=== PATIENT | male | born 1935 | race Caucasian/White ===

== ENCOUNTER 2016-08-31 21:49 | Emergency (ER) | payer MEDICARE, BC ==
[~2016-08-31] VITALS: Ht 188 cm; Wt 91.8 kg
[2016-08-31 21:49] VITALS: TEMP 97.6; Ht 188 cm; Wt 91.8 kg
--- OUTSIDE RECORDS SUMMARY | 2016-08-31 21:53 | XMS REPORT | Continuity of Care Document ---
Author Author [facility] Organization [facility] Address Unknown Phone Unavailable Support Name Relationship Address Phone ROBE LOCKWOOD MD Caregiver [address] [place] [address] [place] [phone] BEAU MONTES MD Caregiver [address] [facility] [address] [place] [address] ISABEL ERICKSON Next Of Kin [address] [place], [place] [id number] Insurance Providers Payer Name Policy Number Subscriber Name Relationship Medicare [id number] Miguelina Erickson 18 Self Blue [employer] Select Plan 65 [id number] Miguelina Erickson 18 Self Problems Medical Problems Problem Onset Date Status Ectopic atrial rhythm Unknown Active Syncope Unknown Active Hyponatremia with decreased serum osmolality Unknown Active Ectopic atrial rhythm Unknown Active Medications Medication Dose Route Sig Days/Qty Instructions Order Date Discontinued Date Status Aspirin 325 Mg PO 2 TIMES A WEEK 03/16/10 03/25/14 Discontinued Calcium Carbonate/Vitamin D3 1 Tab PO DAILY 03/16/10 Active Loratadine 10 Mg PO DAILY 03/16/10 Active Carvedilol 12.5 Mg PO TWICE A DAY 03/16/10 Active Fluticasone Propionate 16 Gm NS NEEDED 03/16/10 Active Hydrocodone Bit/Acetaminophen 1 Udtab PO NEEDED 03/16/10 Active Fish Oil/[place]-3 Fatty Acids 2 Cap PO TWICE A DAY 03/16/10 Active Omeprazole 40 Mg PO DAILY 03/16/10 Active Multivitamins W-Minerals/Lut 1 Tab PO DAILY 03/16/10 Active Calcium Carbonate/Vitamin D3 1 Tab PO DAILY 03/16/10 Active Aspirin 1 Tab PO DAILY 03/25/14 Active Losartan Potassium 25 Mg PO TWICE A DAY 03/25/14 Active Multivit-Min/FA/Lutein/Zeaxant 1 Tab PO DAILY 03/25/14 Active Venlafaxine HCl 75 Mg PO DAILY 03/25/14 Active Pravastatin Sodium 20 Mg PO BEDTIME Take 1 tablet, by mouth, daily at bedtime. 03/25/14 Active Social History Social History Problem Response Recorded Date/Time Smoking Status Former smoker 03/25/2014 10:18am When did patient START smoking? 18 YEARS OLD 03/25/2014 10:18am When did patient STOP smoking? 28 YEARS OLD 03/25/2014 10:18am Hx Substance Use No 03/25/2014 10:18am Hx Alcohol Use No 03/25/2014 10:18am Hospital Discharge Instructions No hospital discharge instructions. Plan of Care No plan of care. Functional Status Query Response Date Recorded Physical Hygiene Self March 25, 2014 10:18am Disabilities None March 25, 2014 10:18am Devices Used None March 25, 2014 10:18am Dressing Self March 25, 2014 10:18am Ambulation Self March 25, 2014 10:18am Diet Self March 25, 2014 10:18am Mental Status Alert Oriented March 25, 2014 10:18am Disabilities None March 25, 2014 10:18am Devices Used None March 25, 2014 10:18am Physical Hygiene Self March 25, 2014 10:18am Dressing Self March 25, 2014 10:18am Ambulation Self March 25, 2014 10:18am Diet Self March 25, 2014 10:18am Allergies, Adverse Reactions, Alerts Allergen Type Severity Reaction Status Last Updated No Known Drug Allergies Allergy Unknown Active 03/13/10 Immunizations Name Given Type Hx Influenza Vaccination Y FALL 2013 Historical Hx Pneumococcal Vaccination Y 2004 Historical Hx Influenza Vaccination Y FALL 2013 Historical Vital Signs Acute Vital Signs Vital Response Date/Time Temperature (Fahrenheit) 96.5 deg F (96.8 - 99.1) Temperature (Calculated Celsius) 35.01006 degrees C (36.0 - 37.3) Pulse Rate (adult) 66 bpm (60 - 100) Respiratory Rate 15 breaths/min (10 - 20) O2 Sat by Pulse Oximetry 96 % (90 - 100) Oxygen Flow Rate 4 L/min Blood Pressure 146/92 mm Hg Height 6 ft 1 in Weight 221 lb Body Mass Index 29.0 kg/m^2 Results Test Source Date Result Interp. Ref. Range Comments Alanine Aminotransferase (ALT/SGPT) March 25, 2014 9:41am 39 U/L N 21 -72 Albumin March 25, 2014 9:41am 3.8 G/DL N 3.5-5.0 Albumin/Globulin Ratio March 25, 2014 9:41am 1.5 RATIO N 1.1-2.2 Alkaline Phosphatase March 25, 2014 9:41am 66 U/L N 38-126 Anion Gap March 25, 2014 9:41am 7 MEQ/L N 5-15 Aspartate Amino Transf (AST/SGOT) March 25, 2014 9:41am 26 U/L N 17- 59 BUN/Creatinine Ratio March 25, 2014 9:41am 14 RATIO N 6-26 Basophils # (Auto) March 25, 2014 9:41am 0.1 T/MM3 N 0-0.2 Basophils (%) (Auto) March 25, 2014 9:41am 0.5 % N 0-2 Blood Urea Nitrogen March 25, 2014 9:41am 14.0 MG/DL N 9-20 Calcium Level March 25, 2014 9:41am 9.3 MG/DL N 8.4-10.2 Calculated Osmolality March 25, 2014 9:41am 251 MOSM/KG L 261-280 Carbon Dioxide Level March 25, 2014 9:41am 28 MEQ/L N 22-30 Chloride Level March 25, 2014 9:41am 94 MEQ/L L 98-107 Creatinine March 25, 2014 9:41am 1.0 MG/DL N 0.8-1.5 Eosinophils # (Auto) March 25, 2014 9:41am 0.3 T/MM3 N 0-0.5 Eosinophils (%) (Auto) March 25, 2014 9:41am 2.6 % N 0-4 Globulin March 25, 2014 9:41am 2.6 G/DL N 2.4-3.6 Glucose Level March 25, 2014 9:41am 123 MG/DL H 75-110 Hematocrit March 25, 2014 9:41am 44.6 % N 41-53 Hemoglobin March 25, 2014 9:41am 15.8 GM/DL N 13.5-17.5 Lymphocytes # (Auto) March 25, 2014 9:41am 2.6 T/MM3 N 1-4.8 Lymphocytes (%) (Auto) March 25, 2014 9:41am 21.6 % L 23-45 Mean Corpuscular Hemoglobin March 25, 2014 9:41am 32.9 UUG N 26-34 Mean Corpuscular Hemoglobin Concent March 25, 2014 9:41am 35.4 GM/DL N 31-37 Mean Corpuscular Volume March 25, 2014 9:41am 92.9 UM3 N 80-100 Mean Platelet Volume March 25, 2014 9:41am 11.1 UM3 N 9.4-12.4 Monocytes # (Auto) March 25, 2014 9:41am 1.4 T/MM3 H 0-0.8 Monocytes (%) (Auto) March 25, 2014 9:41am 11.2 % H 0-9.0 Neutrophils # (Auto) March 25, 2014 9:41am 7.6 T/MM3 N 1.8-7.7 Neutrophils (%) (Auto) March 25, 2014 9:41am 62.8 % N 33-66 Platelet Count March 25, 2014 9:41am 215 T/MM3 N 130-400 Potassium Level March 25, 2014 9:41am 4.6 MEQ/L N 3.6-5 RDW Standard Deviation March 25, 2014 9:41am 40.9 FL N 36.9-50.2 Red Blood Count March 25, 2014 9:41am 4.80 M/MM3 N 4.50-5.90 Sodium Level March 25, 2014 9:41am 129 MEQ/L L 134-144 Total Bilirubin March 25, 2014 9:41am 1.00 MG/DL N 0.20-1.30 Total Protein March 25, 2014 9:41am 6.4 G/DL N 6.3-8.2 Troponin I March 25, 2014 9:41am < 0.012 ng/ml 0-0.12 Urine Bilirubin March 25, 2014 12:54pm Negative - Has specimen been collected/obtained? Y Urine Blood March 25, 2014 12:54pm Negative - Has specimen been collected/obtained? Y Urine Collection Type March 25, 2014 12:54pm Cleancatch-midstream - Has specimen been collected/obtained? Y Urine Color March 25, 2014 12:54pm Yellow - Has specimen been collected/obtained? Y Urine Glucose (UA) March 25, 2014 12:54pm Negative - Has specimen been collected/obtained? Y Urine Ketones March 25, 2014 12:54pm Negative - Has specimen been collected/obtained? Y Urine Leukocyte Esterase March 25, 2014 12:54pm Negative - Has specimen been collected/obtained? Y Urine Nitrite March 25, 2014 12:54pm Negative - Has specimen been collected/obtained? Y Urine Protein March 25, 2014 12:54pm Negative - Has specimen been collected/obtained? Y Urine Specific [place] March 25, 2014 12:54pm 1.020 - Has specimen been collected/obtained? Y Urine Turbidity March 25, 2014 12:54pm Clear - Has specimen been collected/obtained? Y Urine Urobilinogen March 25, 2014 12:54pm 0.2 EU/DL - Has specimen been collected/obtained? Y Urine pH March 25, 2014 12:54pm 6.0 - Has specimen been collected/ obtained? Y White Blood Count March 25, 2014 9:41am 12.1 T/MM3 H 4.5-11.0 Chemistry Specimen Hemolysis March 25, 2014 9:41am < 15 0-25 0-25 : No Hemolysis.26-70: Slight Hemolysis - can falsely elevate K and Urine Protein. 71-285: Moderate Hemolysis - can falsely elevate K, Troponin I, CA 19-9, PTH, CSF GLucose, and Urine Protein, and can falsely decrease Phenytoin. 286-999: Gross Hemolysis - can falsely elevate K, Troponin I, CA 19-9, PTH, CSF Glucose, and Urine Protine, and can falsely decrease Phenytoin. Recommend specimen recollection. Urinalysis Comment March 25, 2014 12:54pm Microscopic not ind. - Has specimen been collected/obtained? Y Glucometer March 25, 2014 10:34am 121 mg/dL H 75-110 Turbidity March 25, 2014 9:41am < 20 0-20 Glomerular Filtration Rate Calc March 25, 2014 9:41am 72 - Immature Granulocyte # (Auto) March 25, 2014 9:41am 0.16 T/MM3 H 0.00 -0.03 Immature Granulocyte % (Auto) March 25, 2014 9:41am 1.3 % H 0.0-0.5 Icterus Index March 25, 2014 9:41am < 2 0-7 Name: MIGUELINA ERICKSON Unit #: [id number] : 1935 Sex: M Loc / [facility]: ED DOS: 03/25/14 Signed Report #: [id number] DIAGNOSTIC IMAGING REPORT TYPE OF EXAM: CT HEAD W/O CONTRAST Dictated By: FILIPE BHATIA MD INDICATION: ITS.REASON: syncope ^syncope COMPARISON: none. CT HEAD W/O CONTRAST: Ventricle size appears to be normal. There is no evidence of hemorrhage, acute infarct, or mass. Minor physiologic calcifications in the basal ganglia. Evidence of moderate chronic small vessel ischemic changes. There is no midline shift. IMPRESSION: Normal for age. . Procedures No known history of procedures. Encounters Encounter Location Date/Time Departed Emergency Room [facility] 03/25/14 9:56am Recent Diagnosis
--- OUTSIDE RECORDS SUMMARY | 2016-08-31 21:53 | XMS REPORT | Continuity of Care Document ---
Author Author [facility] Organization [facility] Address Unknown Phone Unavailable Support Name Relationship Address Phone BEAU MONTES MD Caregiver [address] [facility] [address] [place] [address] Unavailable DIANA BARNES MD Caregiver [address] [place] [address] [place] [phone] Unavailable ISABEL ERICKSON Next Of Kin [address] [place] [address] Insurance Providers Guarantor Miguelina Erickson Address [address] [place] [address] Email DENIED 16 Payer [employer] Select Plan 65 Policy Number [id number] Subscriber's Name Miguelina Erickson Relationship 18 Self Group Number [id number] Payer Medicare Policy Number [id number] Subscriber's Name Miguelina Erickson Relationship 18 Self Advance Directives Directive Response Recorded Date/Time Advanced Directives Type None 06/18/16 11:45pm Chief Complaint and Reason for Visit Chief Complaint Syncope Reason for Visit Syncope Problems Active Problems Medical Problem Onset Date Status 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 Hyponatremia with decreased serum osmolality Unknown Acute Syncope Unknown Acute Medications Current Home Medications Medication Dose Units Route Directions Days Qty Instructions Start Date Aspirin 81 Mg Tab.chew 1 Tab Oral Daily 03/25/14 Calcium Carbonate/Vitamin D3 (Vitamin D-3 400 Units Tablet) 1 Tab Tablet 1 Tab Oral Daily 03/16/10 Carvedilol (Coreg) 12.5 Mg Tablet 12.5 Mg Oral Twice A Day Fish Oil/[place]-3 Fatty Acids ([place] 3 Fish Oil 1,000 Mg Cap) 1 Cap Capsule 2 Cap Oral Twice A Day 03/16/10 Loratadine (Claritin) 10 Mg Tablet 10 Mg Oral Daily 03/16/10 Losartan Potassium 25 Mg Tablet 25 Mg Oral Twice A Day 03/25/14 Multivit-Min/Fa/Lutein/Zeaxant (Icaps Mv Tablet) 1 Each Tablet. 1 Tab Oral Daily 03/25/14 Multivitamins W-Minerals/Lut (Centrum Silver Tablet) 1 Tab Tablet 1 Tab Oral Daily 03/16/10 Omeprazole (Prilosec) 20 Mg Capsule.dr 40 Mg Oral Daily 03/16/10 Pravastatin Sodium 20 Mg Tablet 20 Mg Oral Bedtime Take 1 tablet, by mouth, daily at bedtime. 03/25/14 Venlafaxine Hcl (Venlafaxine Hcl Er) 75 Mg Cap.er.24h 75 Mg Oral Daily 03/25/14 Past Home Medications Medication Directions Ordered Status Aspirin 325 Mg Tablet, 325 Mg Oral 2 Times A Week 03/16/10 Discontinued Calcium Carbonate/Vitamin D3 (Calcium + D 600 Mg Tablet) 1 Tab Tablet, 1 Tab Oral Daily 03/16/10 Discontinued Fluticasone Propionate (Flonase) 16 Gm [place].susp, 16 Gm Nasal As Needed 05/25 Discontinued Hydrocodone Bit/Acetaminophen (Lortab 7.5) 1 Udtab Tablet, 1 Udtab Oral As Needed 03/16/10 Discontinued Social History Social History Problem Response Recorded Date/Time Onset Date Status Hx Substance Use No 06/19/2016 12:23am Not Applicable Not Applicable Hx Alcohol Use No 06/19/2016 12:23am Not Applicable Not Applicable Tobacco Usage none 03/25/2014 3:02pm Not Applicable Not Applicable Query Response Start Date Stop Date Smoking Status Never smoker Hospital Discharge Instructions No hospital discharge instructions. Plan of Care Discharge Date 06/19/16 3:30am Disposition 01 DISCHARGED HOME, SELF-CARE Condition at Discharge Improved Instructions/Education Provided Syncope (ED) Prescriptions See Medication Section Referrals BEAU MONTES MD Address: [address] [place] [phone] Note: Follow-up with your primary medical physician for further evaluation Additional Instructions/Education Please drink something like G2 for electrolyte repletion, be careful standing up follow-up with your PCP Care Plan and Goals Physician Care Plan Problem: Syncopal episode Goal: Follow up with primary care provider Instructions: Take medications and follow care plan as discussed/written Functional Status No functional status results. Allergies, Adverse Reactions, Alerts Allergen Type Severity Reaction Status Last Updated No Known Drug Allergies Allergy Unknown Active 06/19/16 Immunizations Query Response on File Recorded Date/Time Hx Influenza Vaccination Y fall 201303/25/14 10:18am Hx Pneumococcal Vaccination Y 200403/25/14 10:18am Hx Influenza Vaccination Y fall 201303/25/14 10:18am Influenza Vaccine Hx 201506/19/16 12:23am Vital Signs Acute Vital Signs Vital Response Date/Time Temperature (Fahrenheit) 97.7 deg F (96.8 - 99.1) 06/19/2016 3:30am Temperature (Calculated Celsius) 36.74332 degrees C (36.0 - 37.3) 06/19/2016 3:30am Pulse Rate (adult) 66 bpm (60 - 100) 06/19/2016 3:30am Respiratory Rate 18 breaths/min (10 - 20) 06/19/2016 3:30am O2 Sat by Pulse Oximetry 98 % (90 - 100) 06/19/2016 3:30am Blood Pressure 177/97 mm Hg 06/19/2016 3:30am Height (Feet) 5 feet 06/18/2016 11:45pm Height (Inches) 11.00 inches 06/18/2016 11:45pm Weight (Kilograms) 93.600 kg 06/18/2016 11:45pm Body Mass Index (BMI) 28.0 06/18/2016 11:45pm Results Laboratory Results Test Name Result Units Flags Reference Collection Date/Time Result Date/ Time Comments White Blood Count 10.6 T/MM3 4.5-11.0 06/19/2016 1:25am 06/19/2016 1: 39am Red Blood Count 4.66 M/MM3 4.50-5.90 06/19/2016 1:25am 06/19/2016 1: 39am Hemoglobin 15.2 GM/DL 13.5-17.5 06/19/2016 1:2506/19/2016 1:39am Hematocrit 43.6 % 41-53 06/19/2016 1:25am 06/19/2016 1:39am Mean Corpuscular Volume 93.6 UM3 80-100 06/19/2016 1:25am 06/19/2016 1: 39am Mean Corpuscular Hemoglobin 32.6 UUG 26-34 06/19/2016 1:25am 2016 1:39am Mean Corpuscular Hemoglobin Concent 34.9 GM/DL 31-37 06/19/2016 1:25am 06/19/2016 1:39am RDW Standard Deviation 40.9 FL 36.9-50.2 06/19/2016 1:06/19/2016 1 :39am Platelet Count 256 T/MM3 130-400 06/19/2016 1:06/19/2016 1:39am Mean Platelet Volume 11.6 UM3 9.4-12.4 06/19/2016 1:06/19/2016 1: 39am Neutrophils (%) (Auto) 55.1 % 33-66 06/19/2016 1:06/19/2016 1: 39am Lymphocytes (%) (Auto) 28.8 % 23-45 06/19/2016 1:06/19/2016 1: 39am Monocytes (%) (Auto) 12.7 % H 0-9.0 06/19/2016 1:06/19/2016 1:39am Eosinophils (%) (Auto) 2.6 % 0-4 06/19/2016 1:06/19/2016 1:39am Basophils (%) (Auto) 0.3 % 0-2 06/19/2016 1:06/19/2016 1:39am Immature Granulocyte % (Auto) 0.5 % 0.0-0.5 06/19/2016 1:2016 1:39am Absolute Neutrophils (auto) 5.8 T/MM3 1.8-7.7 06/19/2016 1:2016 1:39am Absolute Lymphocytes (auto) 3.1 T/MM3 1-4.8 06/19/2016 1:2016 1:39am Absolute Monocytes (auto) 1.3 T/MM3 H 0-0.8 06/19/2016 1:2016 1:39am Absolute Eosinophils (auto) 0.3 T/MM3 0-0.5 06/19/2016 1:2016 1:39am Absolute Basophils (auto) 0.0 T/MM3 0-0.2 06/19/2016 1:06/19/2016 1:39am Absolute Immature Granulocyte (auto 0.05 T/MM3 H 0.00-0.03 06/19/2016 1: 06/19/2016 1:39am Icterus Index < 2 0-7 06/19/2016 2:0406/19/2016 2:18am Chemistry Specimen Hemolysis < 15 0-25 06/19/2016 2:0406/19/2016 2 :18am 0-25: Specimen Exhibited No Hemolysis. Turbidity < 20 0-20 06/19/2016 2:04am 06/19/2016 2:18am Sodium Level 132 MEQ/L L 134-144 06/19/2016 2:04am 06/19/2016 2:18am Potassium Level 4.8 MEQ/L 3.6-5 06/19/2016 2:0406/19/2016 2:18am Chloride Level 97 MEQ/L L 98-107 06/19/2016 2:0406/19/2016 2:18am Carbon Dioxide Level 28 MEQ/L 22-30 06/19/2016 2:04am 06/19/2016 2: 18am Anion Gap 7 MEQ/L 5-15 06/19/2016 2:0406/19/2016 2:18am Blood Urea Nitrogen 18.0 MG/DL 9-20 06/19/2016 2:04am 06/19/2016 2: 18am Creatinine 1.0 MG/DL 0.8-1.5 06/19/2016 2:04am 06/19/2016 2:18am BUN/Creatinine Ratio 18 RATIO 6-26 06/19/2016 2:0406/19/2016 2:18am Glomerular Filtration Rate Calc 72 06/19/2016 2:04am 06/19/2016 2: 18am Glucose Level 106 MG/DL 75-110 06/19/2016 2:0406/19/2016 2:18am Calculated Osmolality 257 MOSM/KG L 261-280 06/19/2016 2:042016 2:18am Calcium Level 9.5 MG/DL 8.4-10.2 06/19/2016 2:0406/19/2016 2:18am Total Bilirubin 1.00 MG/DL 0.20-1.30 06/19/2016 2:0406/19/2016 2: 18am Alkaline Phosphatase 87 U/L 38-126 06/19/2016 2:0406/19/2016 2:18am Total Protein 6.8 G/DL 6.3-8.2 06/19/2016 2:06/19/2016 2:18am Albumin 4.1 G/DL 3.5-5.0 06/19/2016 2:06/19/2016 2:18am Globulin 2.7 G/DL 2.4-3.6 06/19/2016 2:06/19/2016 2:18am Albumin/Globulin Ratio 1.5 RATIO 1.1-2.2 06/19/2016 2:am 06/19/2016 2 :18am Aspartate Amino Transf (AST/SGOT) 28 U/L 17-59 06/19/2016 2:am 2016 2:18am Alanine Aminotransferase (ALT/SGPT) 29 U/L 21-72 06/19/2016 2:am 08/2016 2:18am Troponin I < 0.012 ng/ml 0-0.12 06/19/2016 2:06/19/2016 2:48am Troponin values with a difference of 55% increase from orginal troponin value represent a true biological DELTA value. (%increase Calc=Orginal Troponin value, divided by subsequent Troponin value, multiplied by 100) Urine Collection Type VOIDED-NOT CC-MIDSTR 06/19/2016 1:252016 3:01am Urine Color YELLOW YELLOW 06/19/2016 1:06/19/2016 3:01am Urine Turbidity CLEAR CLEAR 06/19/2016 1:06/19/2016 3:01am Urine Specific [place] 1.015 1.015-1.025 06/19/2016 1:2016 3:01am Urine pH 6.0 5.0-8.0 06/19/2016 1:2506/19/2016 3:01am Urine Leukocyte Esterase NEGATIVE NEGATIVE 06/19/2016 1:2016 3:01am Urine Nitrite NEGATIVE NEGATIVE 06/19/2016 1:06/19/2016 3:01am Urine Protein NEGATIVE NEGATIVE 06/19/2016 1:25am 06/19/2016 3:01am Urine Glucose (UA) NEGATIVE NEGATIVE 06/19/2016 1:2506/19/2016 3: 01am Urine Ketones NEGATIVE NEGATIVE 06/19/2016 1:25am 06/19/2016 3:01am Urine Urobilinogen 0.2 EU/DL NORMAL 06/19/2016 1:25am 06/19/2016 3: 01am Urine Bilirubin NEGATIVE NEGATIVE 06/19/2016 1:25am 06/19/2016 3: 01am Urine Blood NEGATIVE NEGATIVE 06/19/2016 1:25am 06/19/2016 3:01am Urinalysis Comment MICROSCOPIC NOT IND. 06/19/2016 1:25am 2016 3:01am Procedures No known history of procedures. Encounters Encounter Location Arrival/Admit Date Discharge/Depart Date Attending Provider Departed Emergency Room [facility] 06/18/16 11:43pm 06/19/16 3: 30am DIANA BARNES MD Recent Diagnosis
--- NOTE | 2016-08-31 22:09 | ERPDOC ---
Departure Disposition Decision Date: Aug 31, 2016 Disposition Decision Time: 23:13 Disposition: 01 DISCHARGED HOME, SELF-CARE Impression Impression Impression: Primary Impression: Cough Additional Impression: Sinus drainage Severity: Moderate Condition: Stable Seen By: Mid-level only Referrals: BEAU MONTES MD (Family) Patient Instructions: Acute Cough (ED) Problems/Meds/Labs Reviewed?: Yes Medications reviewed and manag: Yes Additional Instructions: Your chest x-ray was normal. Continue taking your already prescribed azithromycin and prednisone. You may take OTC Mucinex to help thin sinus drainage. You may take Zyrtec or Claritin. Follow with your PCP as needed. Follow up care ordered?: Yes Mental Status: Alert, Oriented HPI - General Medical General Stated Complaint: COUGH/CONGESTION Time Seen by Provider: 22:08 Source: patient HPI - General Medical Initial Comments 81 YO M presents to ED with report of cough that started on 08-21-16. Patient was seen in PCP's office on 08-23. Patient says he had yellow sputum production at that time. Patient says that provider would not give him an antibiotic or order a chest x-ray. Patient says that yesterday provider started him on a z-pack and prednisone. Patient is here tonight because he wants a CXR. Patient reports he still continues to have a cough. Admits rhinorrhea, sinus congestion. Denies fever, chills, SOA or CP. Patient reports that yellow sputum has improved since starting z-pack. Patients did give patient one of her Bactrim's which she take for her chronic bronchitis when the PCP would not give patient a antibiotic. Patient has also been taking Mucinex and [id number] cough syrup. Associated Symptoms: cough, DENIES: chest pain, diaphoresis, fever/chills, headaches, loss of appetite, malaise, nausea/vomiting, shortness of breath, weakness Allergies: Coded Allergies: No Known Drug Allergies (Verified Allergy, Unknown, 08/31/16) Past History Past Medical History Metabolic: hypercholesterolemia, hypertension ENMT: allergies Cardiac: DENIES: CHF, angina Respiratory: DENIES: COPD, asthma GI: DENIES: ulcers Male: BPH Neurological: migraines Musculoskeletal: back pain Integumentary: DENIES: eczema Psychological: anxiety Surgical History General: appendix, gallbladder, other Joint: shoulder Family History Family PMH: FOUND: other (noncontributory) Vaccines Hx Influenza Vaccination: Yes (FALL 2013) Hx Pneumococcal Vaccination: Yes (2004) Social History Substance Use Type: does not use Alcohol Intake: none Sexuality: female partner Review of Systems Constitutional Constitutional: DENIES: chills, dizziness, fever, weakness Eyes General: DENIES: erythema, exudate Lids/Accessories: DENIES: erythema, swelling ENMT Ears: DENIES: pain Hearing: DENIES: hearing loss Sinuses: congestion, rhinorrhea Mouth/Throat: DENIES: sore throat Cardiovascular Cardiac: DENIES: chest pain, murmur Rhythm/Rate: DENIES: palpitations Pulmonary Respiratory: cough, DENIES: dyspnea GI Upper Abdomen: DENIES: nausea, pain, vomiting Lower Abdomen: DENIES: blood in stool, diarrhea, pain General: DENIES: dysuria, pain Musculoskeletal General: DENIES: joint pain, pain, tenderness Integumentary Skin: DENIES: color change, itching, rash Neurological General: DENIES: ataxia, change in strength, numbness, paralysis/paresis, weakness Psychiatric Psychiatric: DENIES: anxiety, depression, nervousness Physical Exam General General Nourishment: well developed, no acute distress, adult General Body Habitus: well groomed Vitals and Pain Weight: Kilograms: Height (feet): 5 Height (inches): 11.00 Triage Pain Scale: Eyes (brief) Eyes Brief: found: EOMI, PERRL ENMT (brief) ENMT Brief: FOUND: TM clear, TM good light reflex, mucosa moist, NOT FOUND: nasal exudate, nasal swelling, pharnyx erythema Neck (brief) Neck: FOUND: trachea midline, NOT FOUND: adenopathy, spasm, tenderness, thyromegaly Respiratory (brief) Respiratory: FOUND: clear all mason, equal bilaterally, symmetrical Cardiovascular (brief) Cardiac: FOUND: regular rate, regular rhythm Abdomen (brief) Abdominal Brief: FOUND: bowel normo active x4, soft, NOT FOUND: distended, tender Musculoskeletal (brief) Musculoskeletal Brief: NOT FOUND: deformity, tenderness Integumentary (brief) Integumentary Brief: FOUND: dry, pink, warm Neurologic (brief) Neurological Brief: FOUND: CN w/o gross def to obs, motor-no gross deficits, sensory-no gross deficits Psychiatric (brief) Psychiatric Brief: FOUND: alert, normal affect, oriented Differential Diagnoses Considering: Acute Bronchitis, Influenza, Pneumonia, Sinusitis, URI, Viral Syndrome Progress Results/Orders Orders Procedure Category Date Status Time Chest, Pa & Lateral RAD 08/31/16 Resulted Progress Progress Patient has normal vital signs and clear lungs however I will order a chest x- ray for patient. I discussed chest x-ray with patient. I told patient I believe that his symptoms are coming from his upper airway from the sinus drainage which is causing his cough. I instructed patient to complete Z-Clyde and prednisone as ordered. Patient and his verbalized understanding of treatment plan, close follow-up with PCP and return precautions. Xray Xray : Xray: CXR PA/Lat (Stable chest, no acute findings (Dr. Herrera)) TATE SEGOVIA APRN Aug 31, 2016 22:09
--- OUTSIDE RECORDS SUMMARY | 2016-08-31 22:34 | XMS REPORT | Continuity of Care Document ---
Author Author [facility] Organization [facility] Address Unknown Phone Unavailable Support Name Relationship Address Phone ROBE LOCKWOOD MD Caregiver [address] [place] [address] [place] [phone] BEAU MONTES MD Caregiver [address] [facility] [address] [place] [address] ISABEL ERICKSON Next Of Kin [address] [place], [place] [id number] Insurance Providers Payer Name Policy Number Subscriber Name Relationship Medicare [id number] Miguelina Erickson 18 Self Blue Cross Select Plan 65 [id number] Miguelina Erickson 18 Self Problems Medical Problems [...] 1 Udtab PO NEEDED 03/16/10 Active Fish Oil/Doyle-3 Fatty Acids 2 Cap PO TWICE A [...] F (96.8 - 99.1) Temperature (Calculated Celsius) 35.92562 degrees C (36.0 - 37.3) Pulse Rate [...] Has specimen been collected/obtained? Y Urine Specific [place] March 25, 2014 12:54pm 1.020 - Has [...] 2 0-7 Name: MIGUELINA ERICKSON Unit #: [id number] : 1935 Sex: M Loc / [facility] [place]: [place] DOS: 03/25/14 Signed Report #: [id number] DIAGNOSTIC IMAGING REPORT TYPE OF EXAM: CT [...] Encounters Encounter Location Date/Time Departed Emergency Room 03/25/14 9:56am Recent Diagnosis
[2016-08-31 23:36] VITALS: BP 155/78; PULSE 85; RESP 16; O2SAT 98
--- NOTE | 2016-09-01 08:06 | DI ---
INDICATION: ITS.REASON: cough PROCEDURE: CHEST 2-VIEWS UPRIGHT (PA \T\ LAT) Encounter: Initial Comparison: March 25, 2014 Findings: The lungs are stable in appearance without new focal airspace consolidation. There is no pleural effusion or pneumothorax. The heart size, pulmonary vascularity and mediastinal contours are unchanged. Old L1 compression fracture. IMPRESSION: Stable appearance of the chest without acute cardiopulmonary disease. .
== END 2016-08-31 23:36 | disposition home or self-care (01) ==
LOC: ED 21:49
DX: R05 Cough (principal); J34.89 Other specified disorders of nose and nasal sinuses; R09.81 Nasal congestion

== ENCOUNTER → 2016-08-31 | Outpatient (CLI) | payer MEDICARE, BC ==
[~2016-08-31] MED LIST: ASPI81TA2 PO; CALC-709 PO; CARV12.525 PO; FISH1CAP28 PO; LORA-326 PO; LOSA25TA34 PO; MULT-795 PO; MULT1TAB13 PO; OMEP-29 PO; PRAV20TA4 PO; VENL-68 PO
--- NOTE | 2016-08-31 10:40 | DI ---
Indication: ITS.REASON: M54.5 LOW BACK PAIN; R29.6 RECENT FALL PROCEDURE: MRI LUMBAR SPINE W/O CONTRAST: Encounter: Initial Comparison: Renal CT dated January 12, 2013 Technique: Multiplanar multisequence MR imaging of the lumbar spine was performed without contrast. Findings: Alignment of the lumbar spine shows grade 1 degenerative retrolisthesis of L2 on L3. There is a chronic moderate to severe anterior biconcave wedge compression fracture of the L1 vertebra. There is an acute appearing superior endplate compression fracture of L4 with a large Schmorl's node present and surrounding bone marrow edema. No additional acute fracture seen. Conus medullaris terminates normally at L1. The paraspinal soft tissues show a 3.7 cm left renal cyst but no acute findings. Segmental analysis: L1-L2: No focal central protrusion or central canal stenosis. Anterior osteophytes. No neural foraminal narrowing. L2-L3: Mild disk height loss without focal central protrusion or central canal stenosis. Degenerative facet disease without significant neural foraminal stenosis. L3-L4: Based disk bulge with a superimposed central protrusion contributing to mild central canal narrowing and lateral recess narrowing. There is mild right and moderate left neural foraminal stenosis. L4-L5: Small annular disk bulge with a superimposed left foraminal disk protrusion narrowing the left lateral recess. No central canal stenosis. Moderate left neural foraminal stenosis. No significant right foraminal narrowing L5-S1: Minimal central bulge without central canal or neural foraminal stenosis. Impression: Recent appearing superior endplate fracture of L4. .
== END ==
LOC: IMA 08:04
DX: M48.56XA Collapsed vertebra, not elsewhere classified, lumbar region, initial encounter for fracture (principal); M47.816 Spondylosis without myelopathy or radiculopathy, lumbar region; M51.26 Other intervertebral disc displacement, lumbar region; R29.6 Repeated falls